=== PATIENT | male | born 1995 | race Caucasian/White ===

== ENCOUNTER 2017-12-19 22:26 | Emergency (ER) | payer OTHER ==
[~2017-12-19] VITALS: Ht 177.8 cm; Wt 83.9 kg
[~2017-12-19 22:26] MED LIST: CELEXA40 MG PO; COLACE100 MG PO; NORCO1 TA1 PO
[2017-12-19 22:36] VITALS: Ht 177.8 cm; Wt 83.9 kg
[2017-12-20 00:59] VITALS: BP 117/75
== END 2017-12-20 00:59 | disposition home or self-care (01) ==
LOC: ED 22:26
DX: M79.621 Pain in right upper arm (principal); I10 Essential (primary) hypertension; Z88.8 Allergy status to other drugs, medicaments and biological substances

== ENCOUNTER 2018-02-28 12:02 | Emergency (ER) | payer OTHER ==
[~2018-02-28] VITALS: Ht 177.8 cm; Wt 82.7 kg
[2018-02-28 12:12] VITALS: Ht 177.8 cm; Wt 82.7 kg
[2018-02-28 13:45] LABS: BASOPHIL % 0.3 % (0-2); PLATELET COUNT 200 x10^3mcL (130-400); RED CELL DISTRIBUTION WIDTH 12.6 % (11.5-14.5)
[2018-02-28 14:09] LABS: microscopic required? NO
[2018-02-28 14:13] LABS: CALCIUM 9.2 mg/dL (8.5-10.1); CARBON DIOXIDE 27.9 mmol/L (21-32); CHLORIDE SERUM 106 mmol/L (98-107); CREATININE SERUM 0.8 mg/dL (0.7-1.3); GFR1 > 60 mL/min; GLUCOSE SERUM 108 mg/dL (74-106); POTASSIUM SERUM 3.8 mmol/L (3.5-5.1); SODIUM SERUM 142 mmol/L (136-145)
[2018-02-28 14:27] LABS: ALBUMIN 4.1 g/dL (3.4-5.0); ALKALINE PHOSPHATASE 100 U/L (46-116); AST/SGOT 14 U/L (15-37); BILIRUBIN TOTAL 0.47 mg/dL (0.20-1.00); FREE T4 0.91 ng/dL (0.76-1.46); TOTAL PROTEIN, SERUM 7.3 g/dL (6.4-8.2)
[2018-02-28 14:27] LABS: UA SPECIFIC GRAVITY <=1.005 (1.005-1.035); urine erythrocyte NEGATIVE (NEGATIVE)
[2018-02-28 14:35] LABS: AMPHETAMINE QUAL UR NONE DETECTED (NEG <=1000)
[2018-02-28 14:50] LABS: ALT/SGPT 23 U/L (16-63)
[2018-02-28 15:37] VITALS: BP 127/67
== END 2018-02-28 15:37 | disposition home or self-care (01) ==
LOC: ED 12:02
PROVIDERS: Emergency Medicine
DX: R42 Dizziness and giddiness (principal); R00.0 Tachycardia, unspecified; I10 Essential (primary) hypertension
CPT/HCPCS: 83880; 84439; G0480; J7030